=== PATIENT | male | born 1990 | race Caucasian/White ===

== ENCOUNTER 2024-04-27 13:50 | Emergency (ER) | payer OTHER ==
[2024-04-27 13:57] VITALS: BP 120/62; PULSE 59; RESP 16; TEMP 97.5
--- NOTE | 2024-04-27 15:23 | ED ---
Wound/Laceration HPI - General Chief Complaint: Wound/Laceration Stated Complaint: R Ear Abscess Time Seen by Provider: 04/27/24 15:19 Source: patient, RN notes reviewed Mode of arrival: ambulatory Limitations: no limitations - History of Present Illness Initial Comments: 34-year-old male with no significant past medical history presenting with right ear issue. States 4 weeks ago he began to develop a hematoma in the cartilage of his right ear. Denies trauma or injury. He states he has had the hematoma drained 4 times, 3 by urgent care and 1 by his primary care doctor. He has also been placed on several different antibiotics for this. He is currently taking levofloxacin. His primary care doctor referred him to an ENT in [place], who he saw this morning. They believe this is caused by a ruptured blood vessel in the ER, and the earliest they can schedule the surgery i next , which is 8 days out. They advised him to come to the emergency room because they are concerned that the edema will cause a lack of oxygenation to the cartilage, causing cauliflower ear. - Related Data Allergies Allergy/AdvReac Type Severity Reaction Status Date / Time No Known Allergies Allergy Verified 04/27/24 13:52 Review of Systems ROS Statement: Those systems with pertinent positive or pertinent negative responses have been documented in the HPI. ROS Other: All systems not noted in ROS Statement are negative. Past Medical History Past Medical History: No Reported History History of Any Multi-Drug Resistant Organisms: None Reported Past Surgical History: No Surgical Hx Reported Past Psychological History: No Psychological Hx Reported Smoking Status: Never smoker Past Alcohol Use History: None Reported Past Drug Use History: None Reported General Exam Limitations: no limitations General appearance: alert, in no apparent distress Head exam: Present: atraumatic, normocephalic, normal inspection Eye exam: Present: normal appearance, PERRL, EOMI. Absent: scleral icterus, conjunctival injection, periorbital swelling ENT exam: Present: normal oropharynx, TM's normal bilaterally, other (Auricle hematoma present on right ear, no drainage, minimal tenderness.). Absent: normal exam Neck exam: Present: normal inspection. Absent: tenderness, meningismus, lymphadenopathy Respiratory exam: Present: normal lung sounds bilaterally. Absent: respiratory distress, wheezes, rales, rhonchi, stridor Cardiovascular Exam: Present: regular rate, normal rhythm, normal heart sounds. Absent: systolic murmur, diastolic murmur, rubs, gallop, clicks Extremities exam: Present: normal inspection, full ROM, normal capillary refill. Absent: tenderness, pedal edema, joint swelling, calf tenderness Neurological exam: Present: alert, oriented X3 Psychiatric exam: Present: normal affect, normal mood Skin exam: Present: warm, dry, intact, normal color. Absent: rash Course Vital Signs 04/27/24 13:53 Temperature 97.5 F L Pulse Rate 59 L Respiratory 16 Rate Blood Pressure 120/62 O2 Sat by Pulse 100 Oximetry Medical Decision Making - Medical Decision Making Was pt. sent in by a medical professional or institution (, [facility], [facility], urgent care, hospital, or halfway...) When possible be specific @ -Recommended by ENT in [facility] for possibility of scheduling surgery sooner Did you speak to anyone other than the patient for history (EMS, parent, family, police, friend...)? What history was obtained from this source @ -No Did you review nursing and triage notes (agree or disagree)? Why? @ -I reviewed and agree with nursing and triage notes Were old charts reviewed (outside hosp., previous admission, EMS record, old EKG, old radiological studies, urgent care reports/EKG's, halfway records)? Report findings @ -No old charts were reviewed Differential Diagnosis (chest pain, altered mental status, abdominal pain women, abdominal pain men, vaginal bleeding, weakness, fever, dyspnea, syncope, headache, dizziness, GI bleed, back pain, seizure, CVA, palpatations, mental health, musculoskeletal)? @ -auricle hematoma, cellulitis, abscess, otitis media, cauliflower ear EKG interpreted by me (3pts min.). @ -None X-rays interpreted by me (1pt min.). @ -None done CT interpreted by me (1pt min.). @ -None done U/S interpreted by me (1pt. min.). @ -None done What testing was considered but not performed or refused? (CT, X-rays, U/S, labs)? Why? @ -None What meds were considered but not given or refused? Why? @ -None Did you discuss the management of the patient with other professionals (professionals i.e. , [facility], [facility], lab, RT, psych nurse, psychologist social, electrical integrator, teacher, helicopter officer, gearcase assembler)? Give summary @ -I spoke with Dr. Mcdonnell who is the on-call ENT, he recommends patient following up with his current ENT as this is not an emergent procedure and cannot get patient in for surgery sooner Was smoking cessation discussed for >3mins.? @ -No Was critical care preformed (if so, how long)? @ -No Were there social determinants of health that impacted care today? How? (Homelessness, low income, unemployed, alcoholism, drug addiction, transportation, low edu. Level, literacy, decrease access to med. care, halfway, rehab)? @ -No Was there de-escalation of care discussed even if they declined (Discuss DNR or withdrawal of care, Hospice)? DNR status @ -No What co-morbidities impacted this encounter? (DM, HTN, Smoking, COPD, CAD, Cancer, CVA, ARF, Chemo, Hep., AIDS, mental health diagnosis, sleep apnea, morbid obesity)? @ -None Was patient admitted / discharged? Hospital course, mention meds given and route, prescriptions, significant lab abnormalities, going to OR and other pertinent info. @ -Patient was discharged. Patient was seen and evaluated for right auricle hematoma x 4 weeks. He saw an ENT in [place] this morning who is scheduled him for surgery next (8 days from now). Patient states he recommended patient come to the ER for possibility of getting scheduled for surgery sooner. No sign of bacterial infection upon examination. Patient is currently taking levofloxacin. I spoke with Dr. More who is the on-call ENT and he recommends that the patient follows up with his current ENT as this is not an emergent procedure and cannot get patient in for surgery sooner. This was discussed with the patient and patient shows understanding. Return parameters discussed. Patient walked out before discharge papers were given. Case was discussed with my attending Dr. Walker. Patient discharged in stable condition. Undiagnosed new problem with uncertain prognosis? @ -No Drug Therapy requiring intensive monitoring for toxicity (Heparin, Nitro, Insulin, Cardizem)? @ -No Were any procedures done? @ -No Diagnosis/symptom? @ -Right auricle hematoma Acute, or Chronic, or Acute on Chronic? @ -Acute Uncomplicated (without systemic symptoms) or Complicated (systemic symptoms)? @ -Uncomplicated Side effects of treatment? @ -No Exacerbation, Progression, or Severe Exacerbation? @ -No Poses a threat to life or bodily function? How? (Chest pain, USA, MS, pneumonia, PE, COPD, DKA, ARF, appy, cholecystitis, CVA, Diverticulitis, Homicidal, Suicidal, threat to staff... and all critical care pts) @ -Unlikely at this time Disposition Clinical Impression: Hematoma of right auricular region Disposition: HOME SELF-CARE Condition: Stable Is patient prescribed a controlled substance at d/c from ED?: No Referrals: Krysten Burciaga MD [Primary Care Provider] - 1-2 days Time of Disposition: 16:26
== END 2024-04-27 16:39 | disposition home or self-care (01) ==
LOC: EC 13:50
DX: S00.431A Contusion of right ear, initial encounter (principal); X58.XXXA Exposure to other specified factors, initial encounter
CPT/HCPCS: 99282

== ENCOUNTER → 2025-02-01 | Outpatient (CLI) | payer OTHER ==
[2025-02-01 14:57] VITALS: BP 110/71; PULSE 76; RESP 16; TEMP 97.4
--- NOTE | 2025-02-01 16:06 | P.SLEEP ---
History of Present Illness DATE: 02/01/2025 CONSULTATION/NEW PATIENT EVALUATION HISTORY OF PRESENT ILLNESS/SLEEP-WAKE EVALUATION: 74-year-old gentleman had b een evaluated in the sleep center for possible obstructive sleep apnea hypopnea syndrome. SLEEP SCHEDULE: Usually sleep schedule from 9 PM to 3:30 AM on weekdays and from 8 PM to 4 AM on weekend. FALLING ASLEEP: No problems with falling asleep. DURING SLEEP: Patient usually sleeps on the side position with snoring and awakenings from sleep 3 times with nocturia. Positive history of grinding te eth, sleepwalking, restless leg symptoms, sleep talking, sweating and nocturia. No history of hypnogogical hallucinations, sleep paralysis, or cataplexy. DURING THE DAY/WAKE STATE: In the morning patient wake up tired, falling asleep during the day, has, concentration irritability, anxiety. [place] sleepiness scale is increased significantly to 15. Patient takes nap after lunch. PAST MEDICAL HISTORY: Asthma. PAST SURGICAL HISTORY: None. MEDICATIONS: Trazodone as needed. SOCIAL HISTORY: See below. FAMILY HISTORY: See below. REVIEW OF SYSTEMS: Snoring, multiple awakenings from sleep, sleepiness during the day. No fevers. No double vision. No recent chest pain. No shortness of breath. No abdominal pain. No bleeding episodes. No blood in urine. No seizure episodes. PHYSICAL EXAMINATION: GENERAL: A pleasant patient without any distress. VITAL SIGNS: Please see below, weight 198, BMI 26.9. HEENT: PERRLA, EOMI. Evaluation of oropharynx showed tongue protrudes midline, low position of soft palate Mallampati 4. NECK: Supple. No JVD. Thyroid is not palpable. 15 inches in circumference. LUNGS: Clear to percussion and to auscultation. Good air exchange. No wheezing or rhonchi. HEART: S1, S2 regular. No murmurs, gallops or rubs. ABDOMEN: Soft and nontender. Bowel sounds are present. No organomegaly appreciated. EXTREMITIES: No clubbing or cyanosis. ONLINE MERCHANT: Awake, alert, and oriented x3. Cranial nerves 2 to 7 intact. There is no fasciculation or atrophy noted. No focal deficits observed. ASSESSMENT: 1. Snoring, multiple awakenings from sleep, extremely low position of soft palate Mallampati 4, sleep obstructive sleep apnea hypopnea syndrome. 2. Significant sleepiness with [place] Sleepiness Scale 15 dictate necessity to include narcolepsy and idiopathic hypersomnia in differential diagnosis. 3. History of asthma. 4. History of episodes of anxiety. 5 history of sleepwalking. PLAN: 1. Polysomnography for evaluation of patient's breathing during sleep. MSLT, if sleep study will be negative for obstructive sleep apnea hypopnea syndrome 2. Following plan after reading sleep study. 3. Preferable position during sleep on the side. 4. No driving if patient feels any sleepiness. Patient is aware of civil and criminal liability for unsafe driving. 5. Sleep hygiene with regular sleep time for at least 7.5-8 hours. 6. Watching weight. Thank you very much for referring this patient for consultation. Sincerely, Owen Araujo MD, PhD, FAASM. Diplomat of [place] [employer], Sleep Medicine Board by [place] [employer] [place] [employer] [facility] [place] cc: Krysten Burciaga MD Past Medical History Past Medical History: Asthma History of Any Multi-Drug Resistant Organisms: None Reported Past Surgical History: No Surgical Hx Reported Past Anesthesia/Blood Transfusion Reactions: No Reported Reaction Past Psychological History: No Psychological Hx Reported Smoking Status: Never smoker, Vaper Past Alcohol Use History: None Reported Past Drug Use History: None Reported - Past Family History Mother Family Medical History: Hypertension Medications and Allergies Home Medications Medication Instructions Recorded Confirmed Type traZODone HCL [Desyrel] 50 mg PO DIRECTED PRN 02/01/25 02/01/25 History Allergies Allergy/AdvReac Type Severity Reaction Status Date / Time No Known Allergies Allergy Verified 04/27/24 13:52 Physical Exam Vitals: Vital Signs Temp Pulse Resp BP Pulse Ox 02/01/25 14:56 97.4 F L 76 16 110/71 97 Intake and Output 02/01/25 02/01/25 02/01/25 06:59 14:59 22:59 Other: Weight 89.811 kg Sleep Note - Sleep Data ESS Total: 16 - Sleep Note Sleep Note: Temperature: 97.4 F Pulse Rate: 76 Respiratory Rate: 16 Blood Pressure: 110/71 SpO2: 97 Height: 6 ft 0.5 in Weight: 89.811 kg BMI: Neck Circumference: 15
== END ==
LOC: 3 N SLEEP 14:40
PROVIDERS: ATTEND Internal Medicine
DX: G47.33 Obstructive sleep apnea (adult) (pediatric) (principal); Z87.09 Personal history of other diseases of the respiratory system; Z86.59 Personal history of other mental and behavioral disorders
CPT/HCPCS: 99211

== ENCOUNTER 2025-04-04 19:44 | Outpatient (CLI) | payer OTHER ==
[2025-04-05 21:35] LABS: Urine Alcohol Negative (Negative); Urine Barbiturate Negative (Negative); Urine Cocaine Negative (Negative); Urine Methadone Negative (Negative); Urine Opiates Negative (Negative); Urine Phencyclidine Negative (Negative)
--- NOTE | 2025-04-11 15:35 | P.PCN ---
Description of Procedure: POLYSOMNOGRAPHY AND MSLT REPORT PROCEDURE(S)/DATE(S): Polysomnography 04/04/2025, multiple sleep latency test 04/05/2025 CLINICAL: Patient has been seen in the sleep center for evaluation of obstructive sleep apnea-hypopnea syndrome. Please see my consultation. Sleep study has been done for evaluation of patient breathing during the sleep. PROCEDURE: The standard montage for clinical polysomnography included the electroencephalogram, the electrooculogram, the mentalis surface el ectromyography and Lead II cardiography. The respiratory battery consisted of measurements of nasal/buccal air flow, pressure transducer measurements from nose, thoracic and/or abdominal effort and intercostal surface electromyography. Video monitoring has been done to check for any parasomnia events. Nocturnal oxyhemoglobin saturations were obtained by finger oximetry. Step-melton titration with positive airway pressure was utilized to control the respiratory events, if necessary. RESULTS: During the diagnostic sleep study sleep efficiency was decreased to 72.9%. Total sleep time 360.2 minutes. Latency to sleep onset was in acceptable range 26.0 min. Sleep architecture showed stage NI was normal 6.2%, Delta sleep was slightly decreased to 4.0%, REM sleep was normal 24.8%. Respiratory channel showed 2 obstructive apneas, 0 mixed apneas, 0 central apneas, 11 hypopneas with lowest oxygen level 89%. Total apnea hypopnea index was 2.2. Heart rate was in the range between 53 and 66, average 58. EMG showed 0 periodic limb movements per hour with 0 micro-arousals per hour. Multiple sleep latency test have been done on the following day, consisted from 5 naps. Patient fell asleep on all naps with mean sleep latency 7.3 minutes. No sleep onset REM was documented. IMPRESSIONS: 1. No significant respiratory abnormalities given documented during the sleep study, normal oxygenation during sleep. 2. No significant periodic limb movements have been documented. 3. Multiple sleep latency test confirmed pathological sleepiness with mean sleep latency 7.3 minutes. No sleep onset REM have been documented Please see other impressions from consultation PLAN: 1. I will see patient for follow-up visit to explain results of the test and recommendations. 2. Sleep hygiene with regular time in bed for at least 7-1/2 hours. 3. Daytime naps were permitted. 4. No driving if feeling sleepiness. Thank you very much for allowing me to participate in the management of your patient. Sincerely, Owen Araujo MD, PhD, FAASM. Diplomat of [place] [employer], Sleep Medicine Board by [place] [employer] [facility] [place] cc: Krysten Burciaga MD
== END 2025-04-05 17:15 | disposition home or self-care (01) ==
LOC: 3 N SLEEP 19:44
PROVIDERS: ATTEND Internal Medicine
DX: G47.33 Obstructive sleep apnea (adult) (pediatric) (principal)
CPT/HCPCS: 80306; 95805; 95810

== ENCOUNTER → 2025-04-18 | Outpatient (CLI) | payer OTHER ==
[2025-04-18 17:01] VITALS: BP 125/75; PULSE 76; RESP 16; TEMP 98.1
--- NOTE | 2025-04-18 17:40 | P.PROGSL ---
Subjective DATE: 04/18/2025 FOLLOW UP VISIT. Patient returned to sleep center for follow-up visit discussed results of sleep study and following plan. I discussed results of sleep study with patient in details. No significant respiratory abnormalities given documented during the test, no periodic limb movements have been documented. Multiple sleep latency test which consisted from 5 naps confirmed pathological sleepiness. Mean sleep latency was 7.3 minutes, no sleep onset REM periods have been documented. Patient continued to feel sleepiness all the time. According to him he is ready to fall asleep during appointment. Presently patient sleep schedule from 8:30 PM to 4:30 AM. He works at home. He started working around 10 AM. [place] sleepiness scale is significantly increased to 15. MEDICATIONS:1. Trazodone as needed During physical exam: GENERAL: A pleasant patient without any distress. VITAL SIGNS: BP 125/75, HR 76, RR 16, weight 204.0, temperature 98.1, oxygen saturation at room air 97%. HEENT: PERRLA, EOMI. NECK: Supple. No JVD. LUNGS: Clear to percussion and to auscultation. Good air exchange. No wheezing or rhonchi. HEART: S1, S2 regular. ABDOMEN: Soft and nontender. EXTREMITIES: No clubbing or cyanosis. PROGRAM LEAD: Awake, alert, and oriented x3. No focal deficit. Impressions: 1. No significant respiratory abnormalities have been documented during the sleep study 2. No periodic limb movements. 3. Patient continued to have symptoms of excessive daytime sleepiness with very high [place] Sleepiness Scale. Multiple sleep latency test confirmed pathological sleepiness with mean sleep latency 7.3 minutes. Differential diagnosis include narcolepsy type II and idiopathic hypersomnia. 4. History of asthma. 5. History of sleepwalking. 6. History of episodes of anxiety. Plan: 1. Patient will start treatment with lowest doses of Adderall 5 mg at 9:30 AM and at 1 p.m. 2. Sleep hygiene with regular time in bed for at least 8 hours. 3. Daytime naps permitted 4. Precautions related to driving. No driving if feel any sleepiness. Patient is aware about civil and criminal liability for unsafe driving, promised to follow recommendations. 5. Follow up visit in 2 months or earlier if patient has any problems. Thank you very much for allowing me to participate in the management of your patient. Owen Araujo MD, PhD, FAASM. Diplomat of [place] [employer], Sleep Medicine Board by [place] [employer] Home Econom[employer] [facility] [place] cc: Festus Burciaga MD Objective - Vital Signs Vital Signs: Vital Signs Temp 98.1 F 04/18/25 17:00 Pulse 76 04/18/25 17:00 Resp 16 04/18/25 17:00 BP 125/75 04/18/25 17:00 Pulse Ox 97 04/18/25 17:00 FiO2 Intake & Output 04/17/25 04/18/25 04/18/25 18:59 06:59 18:59 Weight 92.533 kg Home Medications: Home Medications Medication Instructions Recorded Confirmed Type traZODone HCL [Desyrel] 50 mg PO DIRECTED PRN 02/01/25 02/01/25 History
== END ==
LOC: 3 N SLEEP 16:38
PROVIDERS: ATTEND Internal Medicine
DX: G47.419 Narcolepsy without cataplexy (principal); G47.10 Hypersomnia, unspecified; F41.9 Anxiety disorder, unspecified; F51.3 Sleepwalking [somnambulism]; Z87.09 Personal history of other diseases of the respiratory system
CPT/HCPCS: 99212